=== PATIENT | female | born 1965 | race Caucasian/White ===

== ENCOUNTER 2017-03-07 05:41 | Day surgery (SDC) | payer OTHER ==
[2017-03-07] MEDS ORDERED: Lactated Ringers 1,000 ML IV SCH (06:00)
[2017-03-07] MEDS ORDERED: Lactated Ringers 1,000 ML IV ONE (07:37)
[2017-03-07] MEDS ORDERED: Versed 2 MG/2 ML Injection IV ONE (09:00)
[2017-03-07] MEDS ORDERED: DIPRIVAN 200 MG/20 ML IV ONE (09:00)
--- NOTE | 2017-03-07 09:11 | OP ---
SURGERY DATE/TIME: 03/07/2017704 PREOPERATIVE DIAGNOSES: 1) Gastroesophageal reflux disease. 2) Screening colon. POSTOPERATIVE DIAGNOSES: 1) Normal EGD. 2) Normal colonoscopy. PROCEDURES: 1) EGD. 2) Colonoscopy. SURGEON: Cal Matthews M.D. ANESTHESIA: MAC by Aleksander Lockwood CRNA. ESTIMATED BLOOD LOSS: None. SPECIMENS: None. DESCRIPTION OF PROCEDURE: After informed written consent was obtained, the patient was taken to the endoscopy suite. She underwent monitored anesthesia and had a bite block inserted. The endoscope was inserted in the posterior oropharynx and under direct visualization the esophagus was traversed. The esophageal mucosa, gastric mucosa, gastric antrum, first and second portions of the duodenum were all inspected and noted to be within normal limits. Upon withdrawal again careful mucosal inspection revealed no gross abnormalities or structural issues. The gastroesophageal junction and esophageal mucosa likewise were normal upon withdrawal. The scope is removed and the scopes were switched. A digital rectal exam showed normal sphincter tone and no internal lesions. The scope was inserted in the rectum and sequentially the entire colonic mucosa was traversed. The level of cecum was reached and verified with direct visualization of ileocecal valve after significant difficulty traversing long tortuous colon. Upon withdrawal careful mucosal inspection revealed no gross abnormalities. Prep was noted to be fair to poor due to liquid stool throughout most of the length of the colon. However there were no obvious mucosal abnormalities appreciable on withdrawal. Prior to withdrawal retroflexion was performed and showed no internal lesions. The scope was removed and the patient was transferred to the recovery room in excellent condition.
[2017-03-07 09:19] VITALS: BP 138/77; PULSE 66; O2SAT 100
== END 2017-03-07 09:28 | disposition home or self-care (01) ==
LOC: SDC 05:41
PROVIDERS: ATTEND Family Medicine
PROC: 0DJ08ZZ Inspection of Upper Intestinal Tract, Via Natural or Artificial Opening Endoscopic (ICD-10-PCS; principal; 2017-03-07)
PROC: 0DJD8ZZ Inspection of Lower Intestinal Tract, Via Natural or Artificial Opening Endoscopic (ICD-10-PCS; 2017-03-07)
DX: K21.9 Gastro-esophageal reflux disease without esophagitis (principal); Z12.11 Encounter for screening for malignant neoplasm of colon; I10 Essential (primary) hypertension
CPT/HCPCS: 00740; 00810; J2250; J2704